=== PATIENT | male | born 1975 | race Caucasian/White ===

== ENCOUNTER → 2020-06-27 | Outpatient (CLI) | payer OTHER ==
[2020-02-04 11:00] VITALS: BP 96/55
[~2020-06-27] MED LIST: ASPI-886 PO; ATOR10TA PO; ATOR20TA58 PO; LISI-338 PO; METO25TA4 PO; NITR0.4T24 SL; POLY17PO28 PO; SILD50TA PO; TICA90TA PO
--- NOTE | 2020-06-27 11:34 | CARD ---
MR#: [id number] Date of Study: 06/27/2020 Ordering Physician: ASCENCION OMER, Referring Physician: ASCENCION OMER, Tech: Linda Agee APPROVED REPORT EXAM: Two-dimensional and M-mode echocardiogram with Doppler and color Doppler. Other Information HR: 70bpm INDICATION Post CO RISK FACTORS Hyperlipidemia 2D DIMENSIONS RVDd3.5 (2.9-3.5cm)Left Atrium(2D)4.5 (1.6-4.0cm) IVSd1.1 (0.7-1.1cm)Aortic Root(2D)2.9 (2.0-3.7cm) LVDd5.7 (3.9-5.9cm)LVOT Diameter2.3 (1.8-2.4cm) PWd1.0 (0.7-1.1cm)LVDs4.3 (2.5-4.0cm) FS (%) 23.9 %SV75.2 ml LVEF(%)47.1 (>50%) Aortic Valve AoV Peak Gary.133.5cm/sAoV VTI25.8cm AO Peak GR.7.1mmHgLVOT Peak Gary.123.7cm/s LVOT VTI 24.14cmAO Mean GR.4mmHg AZRA (VMAX)2.07ns2MGE (VTI)4.03cm2 Pulmonary Valve PV Peak Iyhsjozc74.1cm/sPV Peak Grad.4mmHg Tricuspid Valve TR P. Jaxhfqum214lk/sRAP YDAMDQZK1alWu TR Peak Gr.37zsIgJAWC20yoGz Pulmonary Vein S1 Ghxtimxt61.3cm/sD2 Xklufnll98.8cm/s PVa [id number] LEFT VENTRICLE The left ventricle is normal size. There is normal left ventricular wall thickness. The left ventricu lar systolic function is normal. The Ejection Fraction is 55-60%. There is normal LV segmental wall m otion. The left ventricular diastolic function and filling is normal for age. RIGHT VENTRICLE The right ventricle is normal size. There is normal right ventricular wall thickness. The right ventr icular systolic function is normal. ATRIA The left atrium size is normal. The right atrium size is normal. The interatrial septum is intact wit h no evidence for an atrial septal defect or patent foramen ovale as noted on 2-D or Doppler imaging. AORTIC VALVE The aortic valve is normal in structure and function. Doppler and Color Flow revealed no significant aortic regurgitation. Calculated aortic valve area is 3.85 cm2 with maximum pressure gradient of 8 mm Hg and mean pressure gradient of 4 mmHg. MITRAL VALVE The mitral valve is normal in structure and function. There is no evidence of mitral valve prolapse. There is no mitral valve stenosis. Doppler and Color-flow revealed trace mitral regurgitation. TRICUSPID VALVE The tricuspid valve is normal in structure and function. Doppler and Color Flow revealed trace tricus pid regurgitation with an estimated PAP of 23 mmHg. There is no tricuspid valve stenosis. PULMONIC VALVE The pulmonic valve is not well visualized. Doppler and Color Flow revealed trace pulmonic valvular re gurgitation. GREAT VESSELS The aortic root is normal in size. The ascending aorta is normal in size. The IVC was not visualized. PERICARDIAL EFFUSION There is no evidence of significant pericardial effusion. Critical Notification Critical Value: No <Conclusion> The left ventricular systolic function is normal. The Ejection Fraction is 55-60%. There is normal LV segmental wall motion. Trace mitral regurgitation. Trace tricuspid regurgitation with an estimated PAP of 23 mmHg. There is no evidence of significant pericardial effusion. Signed by : Tone Wagner, Electronically Approved : 06/27/2020 11:34:04
== END ==
LOC: ECHO 08:56
PROVIDERS: ATTEND Internal Medicine Cardiovascular Disease
DX: I25.2 Old myocardial infarction (principal); E78.5 Hyperlipidemia, unspecified
CPT/HCPCS: 93306

== ENCOUNTER 2021-03-08 22:48 | Emergency (ER) | payer OTHER ==
[~2021-03-08] VITALS: Ht 177.8 cm; Wt 115.0 kg
[~2021-03-08 22:48] MED LIST changes: -LISI-338 PO; +LISI-517 PO; -POLY17PO28 PO; +POLY17PO52 PO
[2021-03-09 01:07] VITALS: BP 142/79
--- NOTE | 2021-03-09 01:13 | PHYS DOC ---
Past Medical History Past Medical History: No Pertinent History Past Surgical History: Other Additional Past Surgical Histo: "NOSE" BACK, HERNIA Smoking Status: Never Smoker Alcohol Use: Occasionally General Adult EDM: Chief Complaint: EYE PROBLEMS HPI: HPI: Patient is a 45 year old male who presented to ER for evaluation of left eye pain since about 3 PM yesterday. Patient tried to clean his eyes with water but still feels like something stuck in there. Patient denies any injury. Review of Systems: Review of Systems: Constitutional: Denies fever or chills. [] Eyes: Positive for left eye pain HENT: Denies nasal congestion or sore throat. [] Respiratory: Denies cough or shortness of breath. [] Cardiovascular: Denies chest pain or edema. [] GI: Denies abdominal pain, nausea, vomiting, bloody stools or diarrhea. [] : Denies dysuria. [] Musculoskeletal: Denies back pain or joint pain. [] Integument: Denies rash. [] Neurologic: Denies headache, focal weakness or sensory changes. [] Endocrine: Denies polyuria or polydipsia. [] Lymphatic: Denies swollen glands. [] Psychiatric: Denies depression or anxiety. [] Heart Score: C/O Chest Pain: N/A Risk Factors: Risk Factors: DM, Current or recent (<one month) smoker, HTN, HLP, family history of CAD, obesity. Risk Scores: Score 0 - 3: 2.5% MACE over next 6 weeks - Discharge Home Score 4 - 6: 20.3% MACE over next 6 weeks - Admit for Clinical Observation Score 7 - 10: 72.7% MACE over next 6 weeks - Early Invasive Strategies Current Medications: Current Medications Medications (Trade) Dose Ordered Sig/Gabe Start Time Stop Time Status Last Admin Dose Admin Fluorescein Sodium (Ful-Valeria) 1 strip 1X ONCE 03/09/21 01:30 03/09/21 01:31 Tetracaine HCl (Tetracaine) 2 drop 1X ONCE 03/09/21 01:30 03/09/21 01:31 Allergies: Allergies: Allergies Coded Allergies Type Severity Reaction Last Updated Verified No Known Drug Allergies 02/02/20 No Physical Exam: PE: Constitutional: Well developed, well nourished, no acute distress, non-toxic appearance. [] HENT: Normocephalic, atraumatic, bilateral external ears normal, oropharynx moist, no oral exudates, nose normal. [] Eyes: PERRLA, EOMI, conjunctiva normal, no discharge, left cornea abrasion centrally located, no hyphema, no foreign body noted, negative Macho test ] Neurologic: Alert and oriented X 3, normal motor function, normal sensory function, no focal deficits noted. [] Psychologic: Affect normal, judgement normal, mood normal. [] Current Patient Data: Vital Signs: Vital Signs Date Time Temp Pulse Resp B/P (MAP) Pulse Ox O2 Delivery O2 Flow Rate FiO2 03/09/21 01:07 97.8 89 18 142/79 (69) 97 Room Air 97.8 EKG: EKG: [] Radiology/Procedures: Radiology/Procedures: [] Course & Med Decision Making: Course & Med Decision Making Pertinent Labs and Imaging studies reviewed. (See chart for details) [] Dragon Disclaimer: Dragon Disclaimer: This electronic medical record was generated, in whole or in part, using a voice recognition dictation system. Departure Departure Impression: Primary Impression: Corneal abrasion, left Disposition: HOME / SELF CARE / HOMELESS Condition: STABLE Referrals: UNKNOWN PCP NAME (PCP) Please call this EYE DOCTOR BELOW FOR FOLLOW UP IN 1-[address] Khanh Bryant [address] [place] [address]. [id number] Patient Instructions: Eye - Corneal Abrasion Additional Instructions: Thank you for visiting our Emergency Department. We appreciate you trusting us with your care. If any additional problems come up don't hesitate to return to visit us. Please follow up with your primary care provider so they can plan additional care if needed and know about the problem that you had. If symptoms worsen come back to the Emergency Department. Any concerning symptoms that start such as chest pain, shortness of air, weakness or numbness on one side of the body, running high fevers or any other concerning symptoms return to the ER. Scripts Tobramycin Ophth (TOBRAMYCIN OPHTH DROPS) 5 Ml Drops 3 DROP OS QID for 7 Days, #5 ML 0 Refills Prov: SARAH BANEGAS DO 03/09/21 SARAH BANEGAS DO Mar 09, 2021 01:13
[2021-03-09] MEDS ORDERED: FLUORESCEIN OPHTH TEST STRIP. OS ONE (01:30)
[2021-03-09] MEDS ORDERED: TETRACAINE 0.5% OPHTH SOLUTION 4ML BOTTLE. OS ONE (01:30)
[2021-03-09] MEDS ORDERED: TOBR5DRO6 OS (01:42)
== END 2021-03-09 02:06 | disposition home or self-care (01) ==
LOC: ER 22:48
DX: S05.02XA Injury of conjunctiva and corneal abrasion without foreign body, left eye, initial encounter (principal); W22.8XXA Striking against or struck by other objects, initial encounter; Y93.89 Activity, other specified; Y92.89 Other specified places as the place of occurrence of the external cause; Y99.8 Other external cause status
CPT/HCPCS: 99283